=== PATIENT | male | born 1995 | race Two or more races ===

== ENCOUNTER → 2017-02-02 | Outpatient (CLI) | payer OTHER ==
--- NOTE | 2017-02-02 10:16 | NUR ---
ALESHIAAL 2 HRS. Client is referred by special assets officer. He completed testing and interview. He reports no use since 2012 as he served 4 years. Client does not meet criteria at this time and no recommendations. If he has any future alcohol/drug related problems, he would need to be re-evaluated at that time.
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
== END | disposition home or self-care (01) ==
LOC: ADTC.GI 08:32
DX: F69 Unspecified disorder of adult personality and behavior (principal)